=== PATIENT | male | born 1955 | race Caucasian/White ===

== ENCOUNTER 2022-09-28 07:17 | Day surgery (SDC) | payer MEDICARE, MEDICAID ==
[2022-09-28] MEDS ORDERED: fentaNYL 50 MCG/ML SDV ONE (07:23)
[2022-09-28] MEDS ORDERED: Propofol 200 MG/20 ML SDV ONE (07:23)
[2022-09-28] MEDS ORDERED: Midazolam 1 MG/ML 2 ML SDV ONE (07:23)
[2022-09-28] MEDS ORDERED: Sodium Chloride 0.9% 1,000 ML IV SCH (08:00)
== END 2022-09-28 10:00 | disposition home or self-care (01) ==
LOC: JP.SDS 07:17
PROVIDERS: ATTEND Surgery
DX: Z12.11 Encounter for screening for malignant neoplasm of colon (principal); D12.3 Benign neoplasm of transverse colon; I25.10 Atherosclerotic heart disease of native coronary artery without angina pectoris; I73.9 Peripheral vascular disease, unspecified; I10 Essential (primary) hypertension; Z88.5 Allergy status to narcotic agent
CPT/HCPCS: 45380; 88305; J2250; J2704; J3010; J7030